=== PATIENT | male | born 1940 | race Caucasian/White ===

== ENCOUNTER 2016-08-25 17:12 | Emergency (ER) | payer MEDICARE ==
[~2016-08-25 17:12] MED LIST: ACID CONTROL150 MG PO; ASPIR-LOW81 MG PO; ASPIRIN325 MG PO; ATROVENT INH S2.5 ML INH; COREG 12.5MG12.5 MG PO; FENOFIBRATE54 MG PO; FLOMAX 0.4 MG0.4 MG PO; FUROSEMIDE40 MG PO; GLUCOTROL5 MG PO; HYDRALAZINE HCL50 MG PO; IMDUR ER TAB 6060 MG PO; ISORDIL TAB 3030 MG PO; LEVAQUIN500 MG PO; LEVEMIR FL100 UNIT/1 SQ; MEDROL DOSEPAK 24 MG PO; MIRALAX17 GM PO; MUCINEX600 MG PO; PREDNISONE 10 M10 MG GT; PREDNISONE 10 M10 MG PO; PREDNISONE5 MG PO; PROAMATINE 2.52.5 MG PO; PROTONIX40 MG PO; SINGULAIR10 MG PO; SPIRIVA HANDIH18 MCG INH; SYMBICORT 160-1 INHA INH; TYLENOL 500 MG500 MG PO; VENTOLIN/PROVE0.5 ML INH; ZOCOR40 MG PO
[2016-08-25 18:06] LABS: HEMOGLOBIN 12.9 gm/dl (14.0-17.5); RED BLOOD COUNT 4.21 M/UL (4.20-5.50); WHITE BLOOD COUNT 10.9 K/UL (4.5-11.0)
== END 2016-08-25 23:43 ==
LOC: ER1 17:12
PROVIDERS: Emergency Medicine
DX: A41.9 Sepsis, unspecified organism (principal); J18.9 Pneumonia, unspecified organism; R65.20 Severe sepsis without septic shock; J44.9 Chronic obstructive pulmonary disease, unspecified; R09.02 Hypoxemia; D64.9 Anemia, unspecified; D69.6 Thrombocytopenia, unspecified; I13.0 Hypertensive heart and chronic kidney disease with heart failure and stage 1 through stage 4 chronic kidney disease, or unspecified chronic kidney disease; I50.9 Heart failure, unspecified; N18.9 Chronic kidney disease, unspecified; E11.22 Type 2 diabetes mellitus with diabetic chronic kidney disease; G40.909 Epilepsy, unspecified, not intractable, without status epilepticus; Z95.0 Presence of cardiac pacemaker; Z95.1 Presence of aortocoronary bypass graft; Z90.49 Acquired absence of other specified parts of digestive tract; Z99.81 Dependence on supplemental oxygen
CPT/HCPCS: 36415; 36600; 70450; 71010; 80053; 80299; 81001; 82803; 82962; 83605; 83880; 84484; 85025; 87040; 93005; 94660; 96365; 96375; 99285; J2185; J3370; J7050